=== PATIENT | male | born 2000 ===

== ENCOUNTER 2021-07-26 18:35 | Emergency (ER) | payer SELFPAY ==
[2021-07-26 21:03] VITALS: BP 138/80
--- NOTE | 2021-07-27 03:11 | Cat Scan Report ---
EXAMINATION: CT neck wo con HISTORY: Pt states he swallowed a fishbone and it feels stuck in his throat. TECHNIQUE: CT examination of the neck performed without intravenous contrast. All CT scans at this [facility] are performed using CT dose reduction for ALARA by means of automated exposure control. COMPARISON: None available. FINDINGS: The nasal cavity, nasopharynx, oropharynx, oral cavity, larynx, and trachea demonstrate no significan t abnormality. The thyroid gland, parotid gland, and submandibular glands appear unremarkable. No soft tissue mass, abscess, or significant lymphadenopathy is identified. Visualized brain and orbits are unremarkable. There is mucus retention cyst within the left maxillary sinus. Other paranasal sinuses and mastoid air cells are clear. IMPRESSION: Unremarkable CT of the neck without contrast. No foreign body or evidence of acute inflammation. Signer Name: Prabhu Rowe MD Signed: 07/27/2021 3:06 AM Workstation Name: [id number]
--- NOTE | 2021-07-27 05:33 | Emergency Department Report ---
ED General Adult HPI - General Chief complaint: Sore Throat Stated complaint: THROAT OBSTRUCTION Time Seen by Provider: 07/27/21 00:49 Source: patient Mode of arrival: Ambulatory Limitations: No Limitations - History of Present Illness Initial comments: 18-year-old male was emerge department complaining of possible having additional stiffness to after eating fried fish yesterday. States that he felt something stuck there to try to eat numerous bananas but this is better but still feels sensation of something sticking in the throat and and his feels very strong the fishbone still lodged there. No nausea, no vomiting no fever, chills, sweats but no hemoptysis no hematemesis hematochezia Severity scale (0 -10): 5 Consistency: constant Improves with: none Worsens with: none Associated Symptoms: denies other symptoms Treatments Prior to Arrival: none ED Review of Systems ROS: Stated complaint: THROAT OBSTRUCTION Other details as noted in HPI Comment: All other systems reviewed and negative ED Physical Exam - General Limitations: No Limitations General appearance: alert, in no apparent distress - Head Head exam: Present: atraumatic, normocephalic - Eye Eye exam: Present: normal appearance, PERRL, EOMI Pupils: Present: normal accommodation - ENT ENT exam: Present: normal exam, mucous membranes moist, TM's normal bilaterally - Neck Neck exam: Present: normal inspection, full ROM - Respiratory Respiratory exam: Present: normal lung sounds bilaterally. Absent: respiratory distress, wheezes, rales, chest wall tenderness, accessory muscle use, decreased breath sounds - Cardiovascular Cardiovascular Exam: Present: regular rate, normal rhythm. Absent: systolic murmur, diastolic murmur, rubs, gallop - GI/Abdominal GI/Abdominal exam: Present: soft, normal bowel sounds - Rectal Rectal exam: Present: deferred - Extremities Exam Extremities exam: Present: normal inspection - Back Exam Back exam: Present: normal inspection - Neurological Exam Neurological exam: Present: alert, oriented X3 - Psychiatric Psychiatric exam: Present: normal affect, normal mood - Skin Skin exam: Present: warm, dry, intact, normal color. Absent: rash ED Course Vital Signs 07/26/21 21:00 Temperature 98.3 F Pulse Rate 67 Respiratory 17 Rate Blood Pressure 138/80 [Right] O2 Sat by Pulse 97 Oximetry Critical care attestation.: If time is entered above; I have spent that time in minutes in the direct care of this critically ill patient, excluding procedure time. ED Disposition Clinical Impression: Normal findings on CT scan, Throat pain Disposition: HOME / SELF CARE / HOMELESS Is pt being admited?: No Does the pt Need Aspirin: No Condition: Stable Instructions: Sore Throat Referrals: PRIMARY CARE, [Primary Care Provider] - 3-5 Days [facility] [Provider Group] - 3-5 Days
== END 2021-07-27 06:22 | disposition home or self-care (01) ==
LOC: ED 18:35
DX: R07.0 Pain in throat (principal)
CPT/HCPCS: 70490; 99283